=== PATIENT | male | born 1950 | race Native Hawaiian/Other Pacific Islander ===

== ENCOUNTER 2016-11-05 09:26 | Outpatient (CLI) | payer MEDICARE, MEDICAID | END 2016-11-05 09:27 | disposition home or self-care (01) | DX: E11.9 Type 2 diabetes mellitus without complications (principal) ==

== ENCOUNTER 2017-01-22 09:51 | Outpatient (CLI) | payer MEDICARE, MEDICAID | END 2017-01-22 09:52 | disposition home or self-care (01) | DX: E11.9 Type 2 diabetes mellitus without complications (principal); E78.5 Hyperlipidemia, unspecified; M10.9 Gout, unspecified ==

== ENCOUNTER 2017-04-21 08:55 | Outpatient (CLI) | payer MEDICARE, MEDICAID ==
[2017-04-21 10:02] LABS: HEMOGLOBIN A1C 0.64 g/dL
== END 2017-04-21 08:56 | disposition home or self-care (01) ==
LOC: LAB 08:55
PROVIDERS: ATTEND Nurse Practitioner Family
DX: E11.9 Type 2 diabetes mellitus without complications (principal)
CPT/HCPCS: 36415; 83036

== ENCOUNTER 2017-09-14 14:40 | Outpatient (CLI) | payer MEDICARE, MEDICAID | END 2017-09-14 14:41 | disposition home or self-care (01) | LOC: LAB.R 14:40 | PROVIDERS: ATTEND Surgery | DX: R19.7 Diarrhea, unspecified (principal) | CPT/HCPCS: 82270; 83630; 87045; 87046; 87177; 87209; 87493 ==

== ENCOUNTER 2017-09-28 07:22 | Day surgery (SDC) | payer MEDICARE, MEDICAID ==
[2017-09-28] MEDS ORDERED: LACTATED RINGERS 1,000 ML IV ONE (07:34)
[2017-09-28] MEDS ORDERED: fentaNYL 100 MCG/2 ML VIAL IVP ONE (08:20)
[2017-09-28] MEDS ORDERED: MIDAZOLAM 2 MG/2 ML VIAL IVP ONE (08:20)
[2017-09-28 09:49] VITALS: BP 102/78
== END 2017-09-28 07:23 | disposition home or self-care (01) ==
LOC: SDS 07:22
PROVIDERS: ATTEND Surgery
PROC: 0DBP8ZX Excision of Rectum, Via Natural or Artificial Opening Endoscopic, Diagnostic (ICD-10-PCS; 2017-09-28)
PROC: 0DBE8ZX Excision of Large Intestine, Via Natural or Artificial Opening Endoscopic, Diagnostic (ICD-10-PCS; 2017-09-28)
PROC: 0DBK8ZX Excision of Ascending Colon, Via Natural or Artificial Opening Endoscopic, Diagnostic (ICD-10-PCS; principal; 2017-09-28 08:30)
DX: D12.2 Benign neoplasm of ascending colon (principal); K62.1 Rectal polyp; K57.30 Diverticulosis of large intestine without perforation or abscess without bleeding; E11.9 Type 2 diabetes mellitus without complications; I10 Essential (primary) hypertension; J45.909 Unspecified asthma, uncomplicated; E78.00 Pure hypercholesterolemia, unspecified; F17.210 Nicotine dependence, cigarettes, uncomplicated
CPT/HCPCS: 45380; 45384; J7120

== ENCOUNTER 2018-11-30 08:50 | Outpatient (CLI) | payer MEDICARE, MEDICAID ==
[2018-11-30 09:41] LABS: BASOPHILS # (AUTO) 0.1 10^3/uL (0.0-0.1); BASOPHILS % (AUTO) 0.9 %; EOSINOPHILS # (AUTO) 0.4 10^3/uL (0.0-0.7); EOSINOPHILS % (AUTO) 5.6 %; HGB - HEMOGLOBIN 15.5 g/dL (14.0-18.0); LYMPHOCYTES # (AUTO) 2.3 10^3/uL (1.5-3.5); LYMPHOCYTES % (AUTO) 28.8 %; MEAN CORPUSCULAR HEMOGLOBIN 31.7 pg (27.0-31.0); MEAN CORPUSCULAR HGB CONC 33.6 g/dL (32.0-36.0); MEAN CORPUSCULAR VOLUME 94.4 fL (80.0-94.0); MEAN PLATELET VOLUME 8.2 fL (7.4-11.4); MONOCYTES # (AUTO) 0.4 10^3/uL (0.0-1.0); MONOCYTES % (AUTO) 5.3 %; NEUTROPHILS # (AUTO) 4.8 10^3/uL (1.5-6.6); NEUTROPHILS % (AUTO) 59.4 %; PLT - PLATELET COUNT 189 10^3/uL (130-450); RED BLOOD COUNT 4.88 10^6/uL (4.70-6.10); RED CELL DISTRIBUTION WIDTH 14.8 % (12.0-15.0)
[2018-11-30 09:45] LABS: BILIRUBIN,URINE NEGATIVE (NEGATIVE); GLUCOSE, URINE (UA) NEGATIVE (NEGATIVE); KETONES,URINE (UA) NEGATIVE (NEGATIVE); LEUKOCYTE ESTERASE, URINE NEGATIVE (NEGATIVE); NITRITE,URINE NEGATIVE (NEGATIVE); OCCULT BLOOD,URINE MODERATE (NEGATIVE); PH,URINE 6.5 PH (5.0-7.5); PROTEIN,URINE NEGATIVE (NEGATIVE); UROBILINOGEN,URINE 0.2 (NORMAL) E.U./dL (NORMAL)
[2018-11-30 09:46] LABS: CLARITY,URINE CLEAR (CLEAR)
[2018-11-30 09:54] LABS: HB2 TOTAL 17.3 g/dL; HEMOGLOBIN A1C 0.73 g/dL
[2018-11-30 09:58] LABS: BACTERIA,URINE Rare /HPF (None Seen); RBC,URINE 0-5 /HPF (0-5); SQUAMOUS EPITHELIAL CELL,UR NONE SEEN (<= Few)
[2018-11-30 09:59] LABS: ALBUMIN 3.8 g/dL (3.2-5.5); ALKALINE PHOSPHATASE 77 IU/L (42-121); ALT ALANINE AMINOTRANSFERASE 23 IU/L (10-60); AST ASPARTATE AMINOTRANSFERASE 23 IU/L (10-42); BILIRUBIN,TOTAL 0.7 mg/dL (0.2-1.0); BUN - BLOOD UREA NITROGEN 19 mg/dL (6-20); CALCIUM 9.4 mg/dL (8.5-10.3); CARBON DIOXIDE - CO2 29 mmol/L (21-32); CHLORIDE 102 mmol/L (101-111); CHOL/HDL RATIO 4.2 (<5.0); CHOLESTEROL 129 mg/dL; CK- CREATINE KINASE 171 IU/L (22-269); CREATININE 1.2 mg/dL (0.6-1.2); GFR - MDRD 61 (>89); GLUCOSE 120 mg/dL (70-100); HDL CHOLESTEROL 31 mg/dL; LDL CHOLESTEROL,CALCULATED 65 mg/dL; LDL/HDL RATIO 2.1 (<3.6); SODIUM 140 mmol/L (135-145); TOTAL PROTEIN 7.5 g/dL (6.7-8.2); URIC ACID 5.6 mg/dL (2.6-7.2); VLDL CHOLESTEROL 33 mg/dL
[2018-11-30 10:11] LABS: THYROID STIMULATING HORMONE 1.55 uIU/mL (0.34-5.60)
[2018-11-30 10:16] LABS: FERRITIN 171.9 ng/mL (23.9-336.2)
[2018-11-30 10:22] LABS: CREATININE,URINE 137.4 mg/dL; MICROALBUM/CREATININE RATIO,UR 59.7 ug/mg (<30.0); MICROALBUMIN,URINE 8.2 mg/dL (0-300.0)
[2018-12-01 13:37] LABS: HEPATITIS C ANTIBODY NON-REACTIVE (NON-REACTIVE)
== END 2018-11-30 08:51 | disposition home or self-care (01) ==
LOC: LAB 08:50
PROVIDERS: ATTEND Internal Medicine
DX: E78.5 Hyperlipidemia, unspecified (principal); Z79.899 Other long term (current) drug therapy; E11.9 Type 2 diabetes mellitus without complications; R53.83 Other fatigue; M10.9 Gout, unspecified; F03.90 Unspecified dementia, unspecified severity, without behavioral disturbance, psychotic disturbance, mood disturbance, and anxiety; I10 Essential (primary) hypertension; G25.81 Restless legs syndrome; Z11.59 Encounter for screening for other viral diseases
CPT/HCPCS: 36415; 80053; 80061; 81001; 81003; 82043; 82550; 82570; 82728; 83036; 83721; 84425; 84443; 84550; 85025; 86803; 87086

== ENCOUNTER 2019-07-03 13:28 | Outpatient (CLI) | payer MEDICARE, MEDICAID ==
[2019-07-03 13:54] LABS: CREATININE 1.2 mg/dL (0.6-1.2)
[2019-07-03 14:03] LABS: HB2 TOTAL 16.7 g/dL; HEMOGLOBIN A1C 0.69 g/dL; HEMOGLOBIN A1C % 5.9 % (4.6-6.2)
== END 2019-07-03 13:29 | disposition home or self-care (01) ==
LOC: LAB 13:28
PROVIDERS: ATTEND Internal Medicine
DX: E11.9 Type 2 diabetes mellitus without complications (principal); Z79.899 Other long term (current) drug therapy
CPT/HCPCS: 36415; 80048; 83036

== ENCOUNTER 2020-01-02 10:36 | Outpatient (CLI) | payer MEDICARE, MEDICAID ==
[2020-01-02 10:52] LABS: BASOPHILS # (AUTO) 0.1 10^3/uL (0.0-0.1); BASOPHILS % (AUTO) 1.1 %; EOSINOPHILS # (AUTO) 0.3 10^3/uL (0.0-0.7); EOSINOPHILS % (AUTO) 3.6 %; HGB - HEMOGLOBIN 15.9 g/dL (14.0-18.0); LYMPHOCYTES # (AUTO) 2.4 10^3/uL (1.5-3.5); LYMPHOCYTES % (AUTO) 31.9 %; MEAN CORPUSCULAR HEMOGLOBIN 32.1 pg (27.0-31.0); MEAN CORPUSCULAR HGB CONC 33.5 g/dL (32.0-36.0); MEAN CORPUSCULAR VOLUME 95.8 fL (80.0-94.0); MEAN PLATELET VOLUME 9.9 fL (7.4-11.4); MONOCYTES # (AUTO) 0.5 10^3/uL (0.0-1.0); MONOCYTES % (AUTO) 6.5 %; NEUTROPHILS # (AUTO) 4.2 10^3/uL (1.5-6.6); NEUTROPHILS % (AUTO) 56.8 %; PLT - PLATELET COUNT 191 10^3/uL (130-450); RED BLOOD COUNT 4.95 10^6/uL (4.70-6.10); RED CELL DISTRIBUTION WIDTH 13.4 % (12.0-15.0); WHITE BLOOD COUNT 7.4 x10^3/uL (4.8-10.8)
[2020-01-02 11:08] LABS: HB2 TOTAL 16.5 g/dL; HEMOGLOBIN A1C 0.74 g/dL; HEMOGLOBIN A1C % 6.3 % (4.6-6.2)
[2020-01-02 11:13] LABS: ALBUMIN 4.1 g/dL (3.2-5.5); ALBUMIN/GLOBULIN RATIO 1.2 (1.0-2.2); ALKALINE PHOSPHATASE 61 IU/L (42-121); ALT ALANINE AMINOTRANSFERASE 21 IU/L (10-60); AST ASPARTATE AMINOTRANSFERASE 23 IU/L (10-42); BILIRUBIN,TOTAL 0.7 mg/dL (0.2-1.0); BUN - BLOOD UREA NITROGEN 15 mg/dL (6-20); CALCIUM 9.1 mg/dL (8.5-10.3); CARBON DIOXIDE - CO2 28 mmol/L (21-32); CHLORIDE 104 mmol/L (101-111); CHOL/HDL RATIO 4.9 (<5.0); CHOLESTEROL 141 mg/dL; CK- CREATINE KINASE 165 IU/L (22-269); CREATININE 1.2 mg/dL (0.6-1.2); CREATININE,URINE 119.6 mg/dL; GLUCOSE 106 mg/dL (70-100); HDL CHOLESTEROL 29 mg/dL; LDL CHOLESTEROL,CALCULATED 82 mg/dL; LDL/HDL RATIO 2.8 (<3.6); MICROALBUM/CREATININE RATIO,UR 315.2 ug/mg (<30.0); MICROALBUMIN,URINE 37.7 mg/dL (0-300.0); SODIUM 137 mmol/L (135-145); TOTAL PROTEIN 7.6 g/dL (6.7-8.2); URIC ACID 5.4 mg/dL (2.6-7.2); VLDL CHOLESTEROL 30 mg/dL
[2020-01-02 11:25] LABS: THYROID STIMULATING HORMONE 1.49 uIU/mL (0.34-5.60)
== END 2020-01-02 10:37 | disposition home or self-care (01) ==
LOC: LAB 10:36
PROVIDERS: ATTEND Internal Medicine
DX: E78.5 Hyperlipidemia, unspecified (principal); Z79.899 Other long term (current) drug therapy; G64 Other disorders of peripheral nervous system; M10.9 Gout, unspecified; Z13.6 Encounter for screening for cardiovascular disorders; E11.9 Type 2 diabetes mellitus without complications; I10 Essential (primary) hypertension; K21.9 Gastro-esophageal reflux disease without esophagitis; G25.81 Restless legs syndrome; F03.90 Unspecified dementia, unspecified severity, without behavioral disturbance, psychotic disturbance, mood disturbance, and anxiety
CPT/HCPCS: 36415; 80053; 80061; 82043; 82550; 82570; 82607; 83036; 83721; 84443; 84550; 85025

== ENCOUNTER 2020-08-16 14:21 | Outpatient (CLI) | payer MEDICARE, MEDICAID | END 2020-08-16 14:22 | disposition home or self-care (01) | LOC: LAB 14:21 | PROVIDERS: ATTEND Internal Medicine | DX: F32.89 Other specified depressive episodes (principal); Z79.899 Other long term (current) drug therapy | CPT/HCPCS: 36415; 82306 ==

== ENCOUNTER 2021-12-10 12:46 | Outpatient (CLI) | payer MEDICARE, MEDICAID ==
[2021-12-10 13:38] LABS: ESTIMATED AVERAGE GLUCOSE 134 mg/dL (70-100); HEMOGLOBIN A1c% 6.3 % (4.27-6.07)
[2021-12-10 13:42] LABS: CREATININE 1.3 mg/dL (0.6-1.2)
[2021-12-10 13:59] LABS: CALCIUM 9.4 mg/dL (8.5-10.3); POTASSIUM 4.2 mmol/L (3.5-5.0)
== END 2021-12-10 12:47 | disposition home or self-care (01) ==
LOC: LAB.R 12:46
PROVIDERS: ATTEND Internal Medicine
DX: E11.22 Type 2 diabetes mellitus with diabetic chronic kidney disease (principal); N18.9 Chronic kidney disease, unspecified
CPT/HCPCS: 80048; 83036

== ENCOUNTER 2022-04-23 08:00 | Outpatient (CLI) | payer MEDICARE, MEDICAID ==
[2022-04-23 15:39] LABS: BASOPHILS # (AUTO) 0.1 10^3/uL (0.0-0.1); BASOPHILS % (AUTO) 0.8 %; EOSINOPHILS # (AUTO) 0.3 10^3/uL (0.0-0.7); EOSINOPHILS % (AUTO) 3.3 %; HCT - HEMATOCRIT 45.7 % (42.0-52.0); HGB - HEMOGLOBIN 15.9 g/dL (14.0-18.0); LYMPHOCYTES # (AUTO) 2.1 10^3/uL (1.5-3.5); LYMPHOCYTES % (AUTO) 23.9 %; MEAN CORPUSCULAR HEMOGLOBIN 32.1 pg (27.0-31.0); MEAN CORPUSCULAR HGB CONC 34.8 g/dL (32.0-36.0); MEAN CORPUSCULAR VOLUME 92.1 fL (80.0-94.0); MEAN PLATELET VOLUME 10.6 fL (7.4-11.4); MONOCYTES # (AUTO) 0.7 10^3/uL (0.0-1.0); NEUTROPHILS # (AUTO) 5.6 10^3/uL (1.5-6.6); NEUTROPHILS % (AUTO) 63.8 %; PLT - PLATELET COUNT 200 10^3/uL (130-450); RED BLOOD COUNT 4.96 10^6/uL (4.70-6.10); RED CELL DISTRIBUTION WIDTH 13.4 % (12.0-15.0); WHITE BLOOD COUNT 8.8 x10^3/uL (4.8-10.8)
[2022-04-23 15:57] LABS: PSA TOTAL 0.502 ng/mL (0.000-2.000)
[2022-04-23 16:17] LABS: ALBUMIN 4.2 g/dL (3.2-5.5); ALBUMIN/GLOBULIN RATIO 1.2 (1.0-2.2); ALKALINE PHOSPHATASE 74 IU/L (42-121); ALT ALANINE AMINOTRANSFERASE 19 IU/L (10-60); AST ASPARTATE AMINOTRANSFERASE 23 IU/L (10-42); BILIRUBIN,TOTAL 0.8 mg/dL (0.2-1.0); BUN - BLOOD UREA NITROGEN 24 mg/dL (6-20); CALCIUM 9.5 mg/dL (8.5-10.3); CARBON DIOXIDE - CO2 26 mmol/L (21-32); CHLORIDE 103 mmol/L (101-111); CHOL/HDL RATIO 4.3 (<5.0); CHOLESTEROL 126 mg/dL; CK- CREATINE KINASE 284 IU/L (22-269); CREATININE 1.5 mg/dL (0.6-1.2); GFR - MDRD 46 (>89); GLUCOSE 121 mg/dL (70-100); HDL CHOLESTEROL 29 mg/dL; LDL CHOLESTEROL,CALCULATED 65 mg/dL; LDL/HDL RATIO 2.2 (<3.6); POTASSIUM 4.2 mmol/L (3.5-5.0); SODIUM 137 mmol/L (135-145); TOTAL PROTEIN 7.6 g/dL (6.7-8.2); TRIGLYCERIDES 161 mg/dL; URIC ACID 7.5 mg/dL (2.6-7.2); VLDL CHOLESTEROL 32 mg/dL
[2022-04-23 16:33] LABS: CREATININE,URINE 171.6 mg/dL; MICROALBUM/CREATININE RATIO,UR 36.1 ug/mg (<30.0); MICROALBUMIN,URINE 6.2 mg/dL (0-300.0)
[2022-04-23 21:30] LABS: ESTIMATED AVERAGE GLUCOSE 123 mg/dL (70-100); HEMOGLOBIN A1c% 5.9 % (4.27-6.07)
== END 2022-04-23 23:59 | disposition home or self-care (01) ==
LOC: LAB.R 08:00
PROVIDERS: ATTEND Internal Medicine
DX: Z00.00 Encounter for general adult medical examination without abnormal findings (principal); F32.A Depression, unspecified; I12.9 Hypertensive chronic kidney disease with stage 1 through stage 4 chronic kidney disease, or unspecified chronic kidney disease; E11.22 Type 2 diabetes mellitus with diabetic chronic kidney disease; N18.9 Chronic kidney disease, unspecified; F03.90 Unspecified dementia, unspecified severity, without behavioral disturbance, psychotic disturbance, mood disturbance, and anxiety; K21.9 Gastro-esophageal reflux disease without esophagitis; M10.9 Gout, unspecified; H91.90 Unspecified hearing loss, unspecified ear; Z86.010 Personal history of colon polyps; E78.5 Hyperlipidemia, unspecified; G47.00 Insomnia, unspecified; F43.10 Post-traumatic stress disorder, unspecified; N40.0 Benign prostatic hyperplasia without lower urinary tract symptoms; L40.9 Psoriasis, unspecified; F20.9 Schizophrenia, unspecified
CPT/HCPCS: 80053; 80061; 82043; 82306; 82550; 82570; 83036; 83721; 84153; 84443; 84550; 85025

== ENCOUNTER 2023-10-01 10:16 | Outpatient (CLI) | payer MEDICARE, MEDICAID ==
--- NOTE | 2023-10-01 14:29 | MRI Report ---
PROCEDURE: BRAIN WO INDICATIONS: UNSTEADINESS ON FEET TECHNIQUE: Noncontrast axial T1 spin echo, axial T2 fast spin echo, sagittal and axial FLAIR, coronal T2 fast sp in echo, axial gradient echo, axial diffusion and ADC through the brain. COMPARISON: None. FINDINGS: Image quality: Excellent. The ventricular system and cortical sulci demonstrate atrophy, consistent for patient's stated age. There are areas of hyperintense T2/FLAIR signal in the periventricular and subcortical white matter. There is no acute intra or extra-axial fluid collection. No acute hemorrhage, mass lesion or midlin e shift. Brainstem is unremarkable. There are no areas of restricted diffusion. Globes are symmetr ical. Osseous structures are intact.. Fluid in the distal right vertebral artery is poorly visualized . Calvarium has normal marrow signal. Orbits appear normal. Sinuses demonstrate trace scattered pansinus mucosal thickening. IMPRESSION: 1. Moderate atrophy and chronic microvascular ischemic changes. 2. Poor visualization of the distal right vertebral artery flow void. While this could represent slow flow, MRA is recommended for further evaluation to exclude occlusion. Reviewed by: Jessica Kumari MD on 10/01/2023 2:27 PM PST Approved by: Jessica Kumari MD on 10/01/2023 2:27 PM PST Station ID: [id number]
== END 2023-10-01 10:17 | disposition home or self-care (01) ==
LOC: DI 10:16
PROVIDERS: ATTEND Internal Medicine
DX: R26.81 Unsteadiness on feet (principal)

== ENCOUNTER 2023-10-18 10:20 | Outpatient (CLI) | payer MEDICARE, MEDICAID ==
--- NOTE | 2023-10-18 17:09 | MRI Report ---
PROCEDURE: Angio Head WO INDICATIONS: UNSTEADY ON FEET TECHNIQUE: Noncontrast axial 3-D [id number] MR angiogram, with 3-dimensional maximum intensity projection (M IP) reformats of the internal carotid arteries and posterior circulation then performed. COMPARISON: Brain MRI dated 10/02/2023. FINDINGS: Image quality: Diagnostic. Anterior circulation: Intracranial internal carotid arteries demonstrate normal size and intralumina l flow signal. The flow within the paired anterior cerebral arteries is normal and symmetric. There is luminal irregularity present in the M1 segment of the right middle cerebral artery. The middle cer ebral arteries are otherwise unremarkable. The anterior communicating artery is seen. No stenoses, o cclusions, or aneurysms. Posterior circulation: The current images "and a slightly higher level than the brain images. The dis dee right vertebral artery is not visualized on these images, and is presumed to and PICA. The distal right vertebral artery is normal caliber, as is the basilar artery. The flow within the posterior ce rebral arteries is normal and symmetric. No stenoses, occlusions, or aneurysms. IMPRESSION: 1. Right vertebral artery is presumed to and in PICA. Left vertebral artery and basilar artery are pa tent. 2. Mild atherosclerotic narrowing of the M1 segment of the right middle cerebral artery. Reviewed by: Gutierrez Mckoy MD on 10/18/2023 5:07 PM PST Approved by: Gutierrez Mckoy MD on 10/18/2023 5:07 PM PST Station ID: [id number]
== END 2023-10-18 10:21 | disposition home or self-care (01) ==
LOC: DI 10:20
PROVIDERS: ATTEND Internal Medicine
DX: I67.2 Cerebral atherosclerosis (principal); R26.81 Unsteadiness on feet

== ENCOUNTER 2023-12-31 10:23 | Outpatient (CLI) | payer MEDICARE, MEDICAID ==
[2023-12-31 11:11] LABS: THYROID STIMULATING HORMONE 1.25 uIU/mL (0.34-5.60)
[2023-12-31 12:16] LABS: ESTIMATED AVERAGE GLUCOSE 111 mg/dL (70-100); HEMOGLOBIN A1c% 5.5 % (4.27-6.07)
== END 2023-12-31 10:24 | disposition home or self-care (01) ==
LOC: LAB 10:23
PROVIDERS: ATTEND Internal Medicine
DX: E11.9 Type 2 diabetes mellitus without complications (principal); G30.9 Alzheimer's disease, unspecified; R00.1 Bradycardia, unspecified; R63.4 Abnormal weight loss; R25.1 Tremor, unspecified; G62.9 Polyneuropathy, unspecified
CPT/HCPCS: 36415; 82607; 82746; 83036; 84425; 84443

== ENCOUNTER 2024-01-11 13:51 | Outpatient (CLI) | payer MEDICARE, MEDICAID ==
[2024-01-11 14:23] LABS: CREATININE 1.2 mg/dL (0.6-1.3)
[2024-01-11] MEDS: iohexoL-300 100 ML VIAL IVP ONE (14:45)
--- NOTE | 2024-01-11 17:21 | CT Report ---
PROCEDURE: Abdomen/Pelvis W INDICATIONS: EXCESSIVE WEIGHT LOSS CONTRAST: [id number] 100ML TECHNIQUE: After the administration of intravenous contrast, a CT scan of the abdomen and pelvis was performed. Images were recorded and evaluated at appropriate window settings. Reformats: coronal and sagittal. F or radiation dose reduction, the following was used: automated exposure control, adjustment of mA and /or kV according to patient size. COMPARISON: Chest CT from the same date FINDINGS: Image quality: Diagnostic. Lower chest: Unremarkable. Liver: No solid mass. Gallbladder and biliary tree: No radiopaque stones or wall thickening. No biliary dilation. Spleen: No splenomegaly. Pancreas: No pancreatic ductal dilation. Adrenals: No adrenal nodule. Kidneys and ureters: No hydronephrosis. No renal cystic lesion which requires follow up. No solid mas s. Stomach, bowel and peritoneum: No bowel distension. No pathologic free fluid. Diverticulosis without evidence of acute diverticulitis. Lymph nodes: No central or retroperitoneal adenopathy. Vessels: No infrarenal aortic aneurysm. PELVIS Reproductive organs: Mild prostate enlargement. Bladder: Mild diffuse bladder wall thickening. Pelvic lymph nodes: No pelvic adenopathy by size criteria. Bones: No aggressive osseous abnormality. Other: Small bilateral fat-containing inguinal hernias. IMPRESSION: 1. No acute abdominal process. 2. No findings suspicious for metastatic disease in the abdomen and pelvis. 3. Mild diffuse bladder wall thickening, mild prostatomegaly. 4. Diverticulosis without evidence of acute diverticulitis. Reviewed by: Gutierrez Mckoy MD on 01/11/2024 5:20 PM PDT Approved by: Gutierrez Mckoy MD on 01/11/2024 5:20 PM PDT Station ID: [id number]
--- NOTE | 2024-01-12 20:37 | CT Report ---
PROCEDURE: Chest W INDICATIONS: EXCESSIVE WEIGHT LOSS CONTRAST: [id number] 100ML TECHNIQUE: After the administration of intravenous contrast, a CT scan of the chest was performed. Images were recorded and evaluated at appropriate window settings. Reformats: axial MIP of the chest, coronal and sagittal. For radiation dose reduction, the following was used: automated exposure control, adjustme nt of mA and/or kV according to patient size. COMPARISON: None. FINDINGS: Image quality: Diagnostic. Chest wall and lower neck: No thyroid nodule which requires sonographic follow up. No axillary or sup raclavicular adenopathy by size. Lungs and pleura: No consolidation. No pleural effusions. No pneumothorax. No suspicious pulmonary n odules which require follow up. Mediastinum: Heart size is top normal. Severe coronary artery calcifications. No pericardial effusion . 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 Bones: No aggressive osse ous abnormality. Upper Abdomen: Unremarkable. IMPRESSION: 1. No evidence of metastatic disease in the chest. 2. No evidence acute pulmonary process. 3. Severe coronary artery calcifications. 4. Borderline aneurysmal dilatation of the ascending aorta. Reviewed by: Gutierrez Mckoy MD on 01/12/2024 8:35 PM PDT Approved by: Gutierrez Mckoy MD on 01/12/2024 8:35 PM PDT Station ID: [id number]
== END 2024-01-11 13:52 | disposition home or self-care (01) ==
LOC: LAB 13:51
PROVIDERS: ATTEND Internal Medicine
DX: R63.4 Abnormal weight loss (principal); Z79.899 Other long term (current) drug therapy; I25.10 Atherosclerotic heart disease of native coronary artery without angina pectoris; I71.21 Aneurysm of the ascending aorta, without rupture; N40.0 Benign prostatic hyperplasia without lower urinary tract symptoms; K57.90 Diverticulosis of intestine, part unspecified, without perforation or abscess without bleeding
CPT/HCPCS: 36415; 82565

== ENCOUNTER 2024-03-27 08:18 | Outpatient (CLI) | payer MEDICARE, MEDICAID ==
[2024-03-27 08:35] LABS: BASOPHILS # (AUTO) 0.1 10^3/uL (0.0-0.1); BASOPHILS % (AUTO) 0.9 %; EOSINOPHILS # (AUTO) 0.3 10^3/uL (0.0-0.7); HCT - HEMATOCRIT 42.4 % (42.0-52.0); HGB - HEMOGLOBIN 14.4 g/dL (14.0-18.0); LYMPHOCYTES # (AUTO) 1.8 10^3/uL (1.5-3.5); MEAN CORPUSCULAR HEMOGLOBIN 32.3 pg (27.0-31.0); MEAN CORPUSCULAR VOLUME 95.1 fL (80.0-94.0); MEAN PLATELET VOLUME 9.1 fL (7.4-11.4); MONOCYTES # (AUTO) 0.6 10^3/uL (0.0-1.0); MONOCYTES % (AUTO) 8.4 %; NEUTROPHILS # (AUTO) 3.8 10^3/uL (1.5-6.6); NEUTROPHILS % (AUTO) 58.4 %; PLT - PLATELET COUNT 199 10^3/uL (130-450); RED BLOOD COUNT 4.46 10^6/uL (4.70-6.10); RED CELL DISTRIBUTION WIDTH 13.5 % (12.0-15.0); WHITE BLOOD COUNT 6.6 x10^3/uL (4.8-10.8)
[2024-03-27 08:53] LABS: ALBUMIN 3.8 g/dL (3.2-5.5); ALBUMIN/GLOBULIN RATIO 1.5 (1.0-2.2); ALKALINE PHOSPHATASE 58 IU/L (42-121); ALT ALANINE AMINOTRANSFERASE 12 IU/L (10-60); AST ASPARTATE AMINOTRANSFERASE 15 IU/L (10-42); BILIRUBIN,TOTAL 0.6 mg/dL (0.2-1.0); BUN - BLOOD UREA NITROGEN 23 mg/dL (6-20); CALCIUM 9.6 mg/dL (8.5-10.3); CARBON DIOXIDE - CO2 31 mmol/L (21-32); CHLORIDE 101 mmol/L (101-111); CHOL/HDL RATIO 3.2 (<5.0); CHOLESTEROL 142 mg/dL; CREATININE 1.2 mg/dL (0.6-1.3); GFR - MDRD 60 (>89); GLUCOSE 127 mg/dL (74-104); HDL CHOLESTEROL 44 mg/dL; LDL CHOLESTEROL,CALCULATED 67 mg/dL; LDL/HDL RATIO 1.5 (<3.6); POTASSIUM 4.4 mmol/L (3.5-4.5); SODIUM 136 mmol/L (135-145); TOTAL PROTEIN 6.4 g/dL (6.4-8.9); TRIGLYCERIDES 157 mg/dL (48-352); VLDL CHOLESTEROL 31 mg/dL
[2024-03-27 13:00] LABS: ESTIMATED AVERAGE GLUCOSE 103 mg/dL (70-100); HEMOGLOBIN A1c% 5.2 % (4.27-6.07)
== END 2024-03-27 08:19 | disposition home or self-care (01) ==
LOC: LAB 08:18
PROVIDERS: ATTEND Registered Nurse
DX: E78.5 Hyperlipidemia, unspecified (principal); E11.9 Type 2 diabetes mellitus without complications; I10 Essential (primary) hypertension
CPT/HCPCS: 36415; 80053; 80061; 83036; 83721; 85025